=== PATIENT | male | born 1995 | race Caucasian/White ===

== ENCOUNTER 2024-08-30 10:08 | Emergency (ER) | payer OTHER, SELFPAY | END 2024-08-30 11:00 | disposition home or self-care (01) | LOC: CSHERS 10:08 | DX: T38.1X1A Poisoning by thyroid hormones and substitutes, accidental (unintentional), initial encounter (principal); F17.210 Nicotine dependence, cigarettes, uncomplicated; Z55.6 Problems related to health literacy | CPT/HCPCS: 93005; 99284 ==

== ENCOUNTER 2024-08-31 19:52 | Emergency (ER) | payer OTHER, SELFPAY | END 2024-08-31 22:30 | disposition home or self-care (01) | LOC: CSHERS 19:52 | DX: S09.90XA Unspecified injury of head, initial encounter (principal); S01.511A Laceration without foreign body of lip, initial encounter; B20 Human immunodeficiency virus [HIV] disease; F17.210 Nicotine dependence, cigarettes, uncomplicated; Z79.899 Other long term (current) drug therapy; Y04.0XXA Assault by unarmed brawl or fight, initial encounter | CPT/HCPCS: 70450 ==